=== PATIENT | female | born 1985 | race Caucasian/White ===

== ENCOUNTER 2017-07-31 16:10 | Inpatient (IN) | payer SELFPAY ==
[~2017-07-31] VITALS: Ht 172.7 cm; Wt 83.4 kg
[2017-07-31 19:30] VITALS: BP 123/84; PULSE 109; RESP 16; TEMP 98.7; O2SAT 96
[2017-07-31] MEDS ORDERED: ACETAMINOPHEN 325 MG TAB PO PRN (20:00)
[2017-07-31] MEDS ORDERED: ALUMINUM/MAGNESIUM/SIMETH 30 ML CUP PO PRN (20:00)
[2017-07-31] MEDS ORDERED: diphenhydrAMINE HCL 50 MG/ML VIAL - HS PRN IM (20:00)
[2017-07-31] MEDS ORDERED: diphenhydrAMINE HCL 50 MG CAP - HS PRN PO (20:00)
[2017-07-31] MEDS ORDERED: MAGNESIUM HYDROXIDE SUSP 30 ML CUP PO PRN (20:00)
[2017-07-31] MEDS ORDERED: hydrOXYzine HCL 50 MG TAB PO PRN (20:00)
[2017-08-01 05:33] VITALS: BP 111/55; PULSE 84; RESP 16; TEMP 98; O2SAT 98
--- NOTE | 2017-08-01 11:49 | HHI.HP ---
Provisional Diagnosis Admission Date July 31, 2017 at 19:26 [place] I. Adjustment disorder with mixed disturbances of emotion and conduct, alcohol abuse, marijuana abuse rule out extended grief reaction Certification of Person's Competence To Provide Express and Informed Consent I have personally examined Hollie Meza , a person being served at [facility] on, August 01, 2017 11:35. Express and informed consent means consent voluntarily given in writing, by a competent person, after sufficient explanation and disclosure of the subject matter involved to enable the person to make a knowing and willful decision without any element of force, fraud, deceit, duress, or other form of constraint or coercion. This person is 18 years of age or older, is not now known to be incompetent to consent to treatment with a guardian advocate, and does not have a health care surrogate or proxy currently making medical treatment decisions. I have found this person to be one of the following: [xxx] Competent to provide express and informed consent, as defined above, for voluntary admission to this facility and is competent to provide express and informed consent for treatment. He/she has the consistent capacity to make well reasoned, willful, and knowing decisions concerning his or her medical or mental health treatment. The person fully and consistently understands the purpose of the admission for examination/placement and is fully capable of personally exercising all rights assured [place] Incompetent to provide express and informed consent to voluntary admission, and this is incompetent to provide express and informed consent to treatment. The person must be transferred to involuntary status and a petition for a guardian advocate filed with the Circuit Court. [] Refusing to provide express and informed consent to voluntary admission but is competent to provide express and informed consent for treatment. The person must be discharged or transferred to involuntary status. Form shall be completed within 24 hours of a person's arrival at the receiving facility and filed in the clinical record of each person: 1. Admitted on a voluntary basis 2. Permitted to provide express and informed consent to his/her own treatment 3. Allowed to transfer from involuntary to voluntary status 4. Prior to permitting a person to consent to his or her own treatment after having been previously found incompetent to consent to treatment. History of Present Illness Capacity: Has Capacity Psych Chief Complaint: Depression self-inflicted laceration left forearm HPI Patient a 32-year-old white female comes for under a Temple act by the OCD S0 dated 07/31/2017 and 1115 that document reviewed stated I may contact with Hollie who advised she cut her left forearm early this morning Ms. Ferguson became very uncooperative and did not want to provide me with further details. Patient was seen and screened at [facility] urine toxicology positive for marijuana blood alcohol level of 166 patient was medically cleared at that facility her forearm laceration was repaired with it appears to be a single layer closure with 14 sutures. At the present time patient sitting quietly in exam room nurse Kerline present throughout session patient is a heavyset white female appears perhaps slightly younger than her stated age. She is quite labile and tearful crying somewhat sobbing remembering the of her mother in April of this year it appears to mother was in the rehab and then hospitalized for stroke had a second stroke and soon after that. Patient reluctantly later admitted that her mother was an alcoholic and very sequelae related to that also. Patient has not grieved over this. Complicating factors or her boyfriend of 3 years with whom she was living also had his mother who was Greek living with them. Patient had stored some of her mother's stuff at the boyfriend's house. Boyfriend's mother unilaterally threw away memorabilia from patient's mother. This caused increased stress. Patient living in a studio apartment in motel type situation. She does have a support group with her stepfather who is Polish has raised her since she was 17 years of age. She does have a half brother who lives out of state who is no support for her. She does have a patch while all which is quite fond of. 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 Patient states she had a similar episode of depression when her parents are going through the divorce about 20 years ago. She got drunk and was watched overnight. Patient states she drinks 1-2 times per week usually to excess she does drink until she passes out, she denies detox or rehab. Denies any legal issues related to this states she does smoke marijuana fairly regularly especially when her boyfriend was able to supply. She denies any legal issues related to that also. She denies any physical or sexual abuse. Is vague without any mental health issues in family of origin although as stated above, mother was an alcoholic. At this time patient is able contract to do no harm stated laceration on the left forearm was made with the resting of my few found in the mother's possession. There is no attempt to kill herself. At this time patient does not meet Temple criteria will lift Temple act patient wishes to be discharged. I agree with patient to be discharged to herself, the B no Rx by me, strong recommendation for contacting hospice grief counselors to get through involvement as soon as possible, absolute abstinence no alcohol no marijuana. Referred to AA and NA. We will also refer to primary care physician in her home area of to see me to monitor the healing of her left forearm laceration with suture removal within 7-10 days Review of Systems Constitutional: DENIES: Diaphoretic episodes, Fatigue, Fever, Weight gain, Weight loss, Chills, Dizziness, Change in appetite, Night Sweats Endocrine: DENIES: Abnorml menstrual pattern, Heat/cold intolerance, Polydipsia , Polyuria, Polyphagia Eyes: DENIES: Blurred vision, Diplopia, Eye inflammation, Eye pain, Vision loss , Photosensitivity, Double Vision Ears, nose, mouth, throat: DENIES: Tinnitus, Hearing loss, Vertigo, Nasal discharge, Oral lesions, Throat pain, Hoarseness, Ear Pain, Running Nose, Epistaxis, Sinus Pain, Toothache, Odynophagia Respiratory: DENIES: Apneas, Cough, Snoring, Wheezing, Hemoptysis, Sputum production, Shortness of breath Cardiovascular: DENIES: Chest pain, Palpitations, Syncope, Dyspnea on Exertion , PND, Lower Extremity Edema, Orthopnea, Claudication Gastrointestinal: DENIES: Abdominal pain, Black stools, Bloody stools, Constipation, Diarrhea, Nausea, Vomiting, Difficulty Swallowing, Anorexia Genitourinary: DENIES: Abnormal vaginal bleeding, Dysmenorrhea, Dyspareunia, Sexual dysfunction, Urinary frequency, Urinary incontinence, Urgency, Hematuria , Dysuria, Nocturia, Vaginal discharge Musculoskeletal: DENIES: Joint pain, Muscle aches, Stiffness, Joint Swelling, Back pain, Neck pain Integumentary: DENIES: Abnormal pigmentation, Pruritus, Rash, Nail changes, Breast masses, Breast skin changes, Nipple discharge Hematologic/lymphatic: DENIES: Bruising, Lymphadenopathy Immunologic/allergic: DENIES: Eczema, Urticaria Neurologic: DENIES: Abnormal gait, Headache, Localized weakness, Paresthesias, Seizures, Speech Problems, Tremor, Poor Balance Psychiatric: COMPLAINS OF: Depression (Somewhat histrionic and tearful), Suicidal Ideation (Denies) Past Psych History Psychological trauma history Patient denies Violence risk - others (6 mos) Low Violence risk - self (6 mos) Moderate for self-mutilation, cutting Substance Abuse History Drugs/Alcohol past 12 months Patient active marijuana user active alcohol user though she denies detox rehab or legal issues related to her substance use Past Family Social History Coded Allergies: Penicillins (Verified Allergy, Unknown, 07/31/17) codeine (Verified Allergy, Unknown, 07/31/17) morphine (Verified Allergy, Unknown, 07/31/17) Current Medications Medications (Trade) Dose Ordered Sig/Benji Route Start Time Stop Time Status Last Admin (Atarax) 50 mg Q6H PRN PO 07/31/17 20:00 (Benadryl) 50 mg HS PRN PO 07/31/17 20:00 (Benadryl Inj) 50 mg HS PRN IM 07/31/17 20:00 (Tylenol) 650 mg Q4H PRN PO 07/31/17 20:00 08/01/17 08:54 (Milk Of Magnesia Liq) 30 ml DAILY PRN PO 07/31/17 20:00 (Mag-Al Plus Susp Liq) 30 ml Q6H PRN PO 07/31/17 20:00 Family Psych History Patient's mother actively alcoholic before she Social History Patient single male living studio apartment is fairly supportive stepfather has pet dog that she cares about Patient's Strengths (min. 2) Patient verbal able access healthcare Physical Exam Patient medically cleared [facility] at the present time patient sitting quietly in her room Kerline present throughout session she is in no acute distress patient in no respiratory distress, no complaints of abdominal pain. Patient moves all 4 extremities without difficulty no abnormal motor movements noted Vital Signs Vital Signs Date Time Temp Pulse Resp B/P (MAP) Pulse Ox O2 Delivery O2 Flow Rate FiO2 08/01/17 05:33 98.0 84 16 111/55 (73) 98 Lab Results Urine toxicology from [facility] positive for marijuana blood alcohol of 166 Mental Status Examination Appearance: Appropriate Consciousness: Alert Orientation: x4 Motor Activity: Normal gait Speech: Unremarkable Language: Adequate Fund of Knowledge: Adequate Attention and Concentration: Adequate Memory: Unremarkable Mood: Sad (Tearful and somewhat histrionic) Affect: Other (Increased range and intensity) Thought Process & Associations: Intact Thought Content: Appropriate Hallucination Type: None Delusion Type: None Suicidal Ideation: No Suicidal Plan: No Suicidal Intention: No Homicidal Ideation: No Homicidal Plan: No Homicidal Intention: No Insight: Fair Judgment: Impulsive Assessment & Plan Problem List: (1) Marijuana abuse ICD Codes: F12.10 - Cannabis abuse, uncomplicated (2) Grief reaction with prolonged bereavement ICD Codes: F43.21 - Adjustment disorder with depressed mood (3) 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 Patient to be discharged herself, no Rx by me, strong recommendation for follow-up with hospice grief counselors as soon as possible, absolute sobriety, refer also to AA/NA. Also referred to primary care physician for follow-up laceration left forearm Discharge Planning See above Request HC Surrog/Guard Advoc?: No Neftali Castro MD August 01, 2017 11:49
--- NOTE | 2017-08-01 12:02 | HHI.DS ---
Psychiatry Discharge Summary Inpatient Psychiatric care?: Yes Advance Directive: No Reason Not Provided: Due to Patient Condition Mental Health AdvanceDirective: No Health Care Proxy: No Admission Admission Date July 31, 2017 at 19:26 Admission Diagnosis: (1) Marijuana abuse ICD Code: F12.10 - Cannabis abuse, uncomplicated (2) Alcohol abuse ICD Code: F10.10 - Alcohol abuse, uncomplicated (3) Grief reaction with prolonged bereavement ICD Code: F43.21 - Adjustment disorder with depressed mood (4) Adjustment disorder with mixed disturbance of emotions and conduct ICD Code: F43.25 - Adjustment disorder with mixed disturbance of emotions and conduct Brief History Patient a 32-year-old white female comes for under a Temple act by the OCD S0 dated 07/31/2017 and 1115 that document reviewed stated I may contact with Hollie who advised she cut her left forearm early this morning Ms. Ferguson became very uncooperative and did not want to provide me with further details. Patient was seen and screened at [facility] urine toxicology positive for marijuana blood alcohol level of 166 patient was medically cleared at that facility her forearm laceration was repaired with it appears to be a single layer closure with 14 sutures. At the present time patient sitting quietly in exam room nurse Kerline present throughout session patient is a heavyset white female appears perhaps slightly younger than her stated age. She is quite labile and tearful crying somewhat sobbing remembering the of her mother in April of this year it appears to mother was in the rehab and then hospitalized for stroke had a second stroke and soon after that. Patient reluctantly later admitted that her mother was an alcoholic and very sequelae related to that also. Patient has not grieved over this. Complicating factors or her boyfriend of 3 years with whom she was living also had his mother who was Taiwanese living with them. Patient had stored some of her mother's stuff at the boyfriend's house. Boyfriend's mother unilaterally threw away memorabilia from patient's mother. This caused increased stress. Patient living in a studio apartment in motel type situation. She does have a support group with her stepfather who is Korean has raised her since she was 17 years of age. She does have a half brother who lives out of state who is no support for her. She does have a patch while all which is quite fond of. She works as a shelver at a local restaurant. Patient states she had a similar episode of depression when her parents are going through the divorce about 20 years ago. She got drunk and was watched overnight. Patient states she drinks 1-2 times per week usually to excess she does drink until she passes out, she denies detox or rehab. Denies any legal issues related to this states she does smoke marijuana fairly regularly especially when her boyfriend was able to supply. She denies any legal issues related to that also. She denies any physical or sexual abuse. Is vague without any mental health issues in family of origin although as stated above, mother was an alcoholic. At this time patient is able contract to do no harm stated laceration on the left forearm was made with the resting of my few found in the mother's possession. There is no attempt to kill herself. At this time patient does not meet Temple criteria will lift Temple act patient wishes to be discharged. I agree with patient to be discharged to herself, the B no Rx by me, strong recommendation for contacting hospice grief counselors to get through involvement as soon as possible, absolute abstinence no alcohol no marijuana. Referred to AA and NA. We will also refer to primary care physician in her home area of to see me to monitor the healing of her left forearm laceration with suture removal within 7-10 days Tobacco Use In Past 30 Days: No Tobacco Past 30 Days Alcohol Use: Monthly or Less Hospital Course Please see above note dictated under brief history. Patient does not meet criteria for further inpatient stay. Patient denies suicidality and homicidality voices or visions, is able contract to do no harm. We will lift Temple act. Patient to be discharged to herself, no Rx by me, referred to AA and NA, patient keep wound clean and dry follow-up primary care for wound care within 7-10 days, referred to hospice for grief counseling as soon as possible Results Blood Pressure 111 / 55 Vital Signs Date Time Temp Pulse Resp B/P (MAP) Pulse Ox O2 Delivery O2 Flow Rate FiO2 08/01/17 05:33 98.0 84 16 111/55 (73) 98 Urine toxicology at [facility] positive for marijuana, blood alcohol level of 166 Summary of Procedures Patient had repair laceration left forearm at [facility] Pending results at discharge: No Medications # of Antipsychotic meds at D/C: 0 Approp Antipsych med options 1 - Minimum of three failed multiple trials of monotherapy. 2 - Documented plan to taper to monotherapy due to previous use of multiple meds OR cross-taper in progress at D/C. 3 - Documentation of augmentation of Clozapine. 4 - Justification other than those listed in allowable values 1-3, document here : Discharge Discharge Date: August 01, 2017 Discharge Diagnosis: (1) Alcohol abuse Diagnosis: Secondary ICD Code: F10.10 - Alcohol abuse, uncomplicated (2) Marijuana abuse Diagnosis: Secondary ICD Code: F12.10 - Cannabis abuse, uncomplicated (3) Adjustment disorder with mixed disturbance of emotions and conduct Diagnosis: Principal ICD Code: F43.25 - Adjustment disorder with mixed disturbance of emotions and conduct (4) Grief reaction with prolonged bereavement Diagnosis: Principal ICD Code: F43.21 - Adjustment disorder with depressed mood Pt Condition on Discharge: Stable Discharge Disposition: Discharge Home Discharge Instructions Diet Instructions: As Tolerated, No Restrictions Activities you can perform: Regular-No Restrictions Scheduled Appointment: Referred hospice grief counseling, referred primary care for wound care Discharge Time > 30 minutes Mental Status Examination Appearance: Appropriate Consciousness: Alert Orientation: x4 Motor Activity: Normal gait Speech: Unremarkable Language: Adequate Fund of Knowledge: Adequate Attention and Concentration: Adequate Memory: Unremarkable Mood: Sad (Tearful and somewhat histrionic) Affect: Other (Increased range and intensity) Thought Process & Associations: Intact Thought Content: Appropriate Hallucination Type: None Delusion Type: None Suicidal Ideation: No Suicidal Plan: No Suicidal Intention: No Homicidal Ideation: No Homicidal Plan: No Homicidal Intention: No Insight: Fair Judgment: Impulsive Discharge/Advance Care Plan Health Problems: (1) Marijuana abuse (2) Grief reaction with prolonged bereavement (3) 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 Neftali Castro at Smoking is Dangerous to Your Health. Avoid second hand smoking Neftali Castro MD August 01, 2017 12:02
== END 2017-08-01 16:00 | disposition home or self-care (01) | DRG 897 ==
LOC: H260 19:26
PROVIDERS: ADMIT Psychiatry & Neurology Psychiatry; ATTEND Psychiatry & Neurology Psychiatry
DX: F10.10 Alcohol abuse, uncomplicated (principal); F12.10 Cannabis abuse, uncomplicated; F43.25 Adjustment disorder with mixed disturbance of emotions and conduct; F43.21 Adjustment disorder with depressed mood; Z81.1 Family history of alcohol abuse and dependence; S51.812D Laceration without foreign body of left forearm, subsequent encounter; Y28.9 Contact with unspecified sharp object, undetermined intent